=== PATIENT | male | born 1940 | race Caucasian/White ===

== ENCOUNTER 2022-10-16 14:38 | Outpatient (CLI) | payer MEDICARE | END 2022-10-16 14:39 | disposition home or self-care (01) | LOC: ULT 14:38 | PROVIDERS: ATTEND Internal Medicine Nephrology | DX: N18.30 Chronic kidney disease, stage 3 unspecified (principal); N17.1 Acute kidney failure with acute cortical necrosis | CPT/HCPCS: 76770 ==